=== PATIENT | male | born 1985 | race Hispanic/Latino ===

== ENCOUNTER 2021-11-17 18:11 | Emergency (ER) | payer OTHER, SELFPAY ==
[2021-11-17 18:20] VITALS: BP 122/72; PULSE 91; RESP 16; TEMP 36.1; O2SAT 98
--- NOTE | 2021-11-17 18:21 | ED.SKABFB ---
HPI - Skin/Abscess/Foreign Bdy General Chief complaint: Skin/Abscess/Foreign Body Stated complaint: poison christ Time Seen by Provider: 11/17/21 18:21 Source: patient Mode of arrival: ambulatory Limitations: no limitations History of Present Illness HPI narrative: 36-year-old male presented for complaint of rash and itching bilateral wrists, ears, left lower leg and back, onset 3 days. She states he cleansed with an [id number] wash, at the onset of symptoms, has not taken anything or applied anything else to the sites. Denies any other locations of sites. Denies lip, tongue, or throat swelling or difficulty breathing. Pt is [place]-speaking and his is translating per his request. MD complaint: rash Related Data Allergies Allergy/AdvReac Type Severity Reaction Status Date / Time No Known Allergies Allergy Verified 11/17/21 18:21 Review of Systems Review of Systems: CONSTITUTIONAL: Denies body aches, fever, chills, or sweats. EYES: Denies visual changes, redness, or discharge. ENT: Denies rhinorrhea, congestion, sore throat, or otalgia. CARDIOVASCULAR: Denies chest pain, palpitations, or edema. RESPIRATORY: Denies cough or dyspnea. SKIN: Reports rash, itching MUSCULOSKELETAL: Denies back pain, joint pain, or myalgia. NEUROLOGIC: Denies headache, numbness, tingling, or weakness. PSYCH: Denies depression or anxiety. PMFSH Comments At time of signature, I have reviewed and agree with nursing past medical, surgical, social and family history unless otherwise noted. Please see nursing chart for further information. There is no relevant family history pertinent to the presenting complaint Exam Narrative: GENERAL: Well-appearing HEAD: Normocephalic, atraumatic. EYES: conjunctivae clear, and EOMI. ENT: Mucous membranes moist. Oropharynx without edema, erythema or lesions. NECK: Supple. No lymphadenopathy CHEST: Clear to auscultation. No respiratory distress. HEART: Regular rate and rhythm. SKIN: Warm, dry. Small patches of erythematous papules to bilateral wrists, left lower leg, and left lower back, nontender, no apparent drainage; c/w contact dermatitis NEURO: Alert and oriented x3. PSYCH: Normal mood and affect Course Course Emergency Course: Patient is aware of diagnosis, understands and agrees to treatment plan. Anticipatory guidance given. Patient agrees to follow-up as directed and is aware of reasons to seek care at the emergency department. Portions of this record may have been created with voice recognition software Level of Care: Express Care Visit Vital Signs Vital signs: Vital Signs Temperature 97.0 F L 11/17/21 18:20 Pulse Rate 91 11/17/21 18:20 Respiratory Rate 16 11/17/21 18:20 Blood Pressure 122/72 11/17/21 18:20 Pulse Oximetry 98 11/17/21 18:20 Oxygen Delivery Room Air 11/17/21 18:20 Temperature 97.0 F L 11/17/21 18:20 Pulse Rate 91 11/17/21 18:20 Respiratory Rate 16 11/17/21 18:20 Blood Pressure 122/72 11/17/21 18:20 Pulse Oximetry 98 11/17/21 18:20 Oxygen Delivery Room Air 11/17/21 18:20 Reviewed MDM - Skin/Abscess/Foreign Bdy MDM Narrative Medical decision making narrative: Patient looks well, nontoxic, afebrile; appropriate for initial outpatient treatment; discussed the importance of follow-up, patient agrees Instructed patient to go to nearest ER immediately for any worsening symptoms including but not limited to: fever, spreading rash, pain, sore throat, headache, dizziness, chest pain, trouble breathing, or any symptoms concerning to the patient. Differential Diagnosis Differential diagnosis: Likely abscess of skin or subcutaneous tissue, urticaria, herpes zoster, cellulitis and contact dermatitis Discharge Plan Discharge Clinical Impression: Contact dermatitis Patient Disposition: Home, Self-Care Condition: Stable Instructions: Antibiotic Form, Contact Dermatitis (ED) Additional Instructions: Wash the areas w
== END 2021-11-17 18:41 | disposition home or self-care (01) ==
PROVIDERS: Emergency Provider Nurse Practitioner Family
DX: L25.9 Unspecified contact dermatitis, unspecified cause (principal)
CPT/HCPCS: 99213; G0463

== ENCOUNTER 2023-08-22 03:19 | Emergency (ER) | payer OTHER, SELFPAY ==
--- NOTE | ~2023-08-22 | CT_ITS ---
EXAMINATION: CT abdomen pelvis wo con DATE: 08/22/2023 04:13 INDICATION: Flank pain. Urinary urgency. TECHNIQUE: Computed tomography (CT) of the abdomen and pelvis was performed without intravenous contr ast. Automated exposure control and iterative reconstruction technique were employed. The dose-length product was 456.07 mGy-cm. COMPARISON: None. FINDINGS: The visualized portions of the lung bases demonstrate mild atelectasis. No pleural effusion . The heart size is normal. No pericardial effusion. There is diffuse hepatic steatosis. The gallblad eda, spleen, pancreas, and adrenal glands are normal. There is a 4 mm stone in right kidney. There is mild right hydronephrosis and hydroureter. There is a 3 mm stone at right ureterovesicular junction. There is a 3 mm stone in left kidney. There is a right inguinal hernia containing fat. The prostate is mildly enlarged. There are no dilated loops of bowel. The appendix is normal. There are no patholo gically enlarged lymph nodes. There is no free intraperitoneal fluid. There is mild thoracic and lumb ar spondylosis. There is mild chronic anterior wedging of T12 and L1 vertebral bodies. IMPRESSION: 1. 3 mm stone at right ureterovesicular junction with mild right hydronephrosis and hydroureter. 2. Bilateral nonobstructing kidney stones. Reviewed, dictated and finalized at location E. [employer]
[2023-08-22 03:21] VITALS: BP 141/97; PULSE 89; RESP 20; TEMP 36.4; O2SAT 100
--- NOTE | 2023-08-22 03:25 | ED.GENADULT ---
HPI - General Adult General Chief complaint: Urogenital-Male Stated complaint: Right flank pain Time Seen by Provider: 08/22/23 03:23 History of Present Illness HPI narrative: patient 38-year-old gentleman who presents emergency department with chief complaint of right-sided flank pain. The patient reports this started suddenly this evening about 1 hour prior to arrival the patient report is unable to get comfortable reports this feels similar to whenever he has had kidney stones before in the past but states he is also having some difficulty starting to urinate. Related Data Allergies Allergy/AdvReac Type Severity Reaction Status Date / Time No Known Allergies Allergy Verified 11/17/21 18:21 Review of Systems Review of Systems: A 10 system review of systems was completed on the patient and is negative except for what is stated in the HPI. Nursing and ancillary documentation was reviewed. Exam Narrative: GENERAL: Well-appearing, well-nourished, and in Moderate acute pain distress. HEAD: Normocephalic, atraumatic. EYES: PERRLA and EOMI. ENT: Nares clear, no rhinorrhea or epistaxis. Mucous membranes moist. NECK: Supple. CHEST: Clear to auscultation. No respiratory distress. HEART: Regular rate and rhythm. No murmur heard. Normal peripheral pulses. ABDOMEN: Soft, nontender, nondistended, normal active bowel sounds. EXTREMITIES: Normal range of motion. No edema. SKIN: Warm, dry, no rash. NEURO: No focal deficits. Alert and oriented x3. PSYCH: Normal mood and affect. Course Vital Signs Vital signs: Vital Signs Temperature 36.4 C L 08/22/23 03:21 Pulse Rate 89 08/22/23 03:21 Respiratory Rate 20 08/22/23 03:21 Blood Pressure 141/97 H 08/22/23 03:21 Pulse Oximetry 100 08/22/23 03:21 Oxygen Delivery Room Air 08/22/23 03:21 Temperature 36.4 C L 08/22/23 03:21 Pulse Rate 89 08/22/23 03:21 Respiratory Rate 20 08/22/23 03:21 Blood Pressure 141/97 H 08/22/23 03:21 Pulse Oximetry 100 08/22/23 03:21 Oxygen Delivery Room Air 08/22/23 03:21 Medical Decision Making MDM Narrative Medical decision making narrative: Differential diagnosis includes UTI, pyelonephritis, ureterolithiasis, Patient underwent laboratory testing showed a white count of 10.8 electrolytes are within normal limits CT scan of the abdomen pelvis showed a 4 mm stone at the UVJ The patient's pain is under control now the patient will be discharged home on Flomax [place] and Zofran the patient will be given a urine strainer Ob referred to Urology. The urinalysis will be evaluated prior to the patient's discharge. Vital Signs Vital Signs: Vital Signs Temperature 36.4 C L 08/22/23 03:21 Pulse Rate 89 08/22/23 03:21 Respiratory Rate 20 08/22/23 03:21 Blood Pressure 141/97 H 08/22/23 03:21 Pulse Oximetry 100 08/22/23 03:21 Oxygen Delivery Room Air 08/22/23 03:21 Temperature 36.4 C L 08/22/23 03:21 Pulse Rate 89 08/22/23 03:21 Respiratory Rate 20 08/22/23 03:21 Blood Pressure 141/97 H 08/22/23 03:21 Pulse Oximetry 100 08/22/23 03:21 Oxygen Delivery Room Air 08/22/23 03:21 Lab Data 08/22/23 03:31 08/22/23 03:31 Labs: Lab Results 08/22/23 08/22/23 Range/Units 03:31 04:51 WBC 10.8 H (4.5-10.0) K/mm3 RBC 5.45 (4.6-6.20) M/mm3 Hgb 16.1 (14.0-18.0) g/dL Hct 48.1 (42.0-52.0) % MCV 88.3 (80-100) fl MCH 29.5 (26-34) pg MCHC 33.5 (32-36) g/dl RDW 12.7 (11.5-14.5) % Plt Count 206 (150-375) k/mm3 MPV 10.9 H (7.4-10.4) fl Immature Gran % (Auto) 0.4 (0-0.5) % Neut % (Auto) 34.9 L (45.5-73.1) % Lymph % (Auto) 54.5 H (18.3-44.2) % [place] % (Auto) 8.3 (2.6-8.5) % Eos % (Auto) 1.3 (0-4.4) % Baso % (Auto) 0.6 (0.2-1.2) % Lymph # (Auto) 5.89 H (0.9-3.2) K/mm3 [place] # (Auto) 0.9 H (0.1-0.6) K/mm3 Eos # (Auto) 0.1 (0-0.3) K/mm3 Baso # (Auto) 0.1 (0.0-0.1)
[2023-08-22] MEDS: SODIUM CHLORIDE 0.9% IV 1,000 ML 999 ML IV CONT (03:31)
[2023-08-22] MEDS: ONDANSETRON INJ 4 MG/2 ML VIAL IV PUSH (03:32)
[2023-08-22] MEDS: MORPHINE SULFATE (*CRX) 4 MG/ML INJ IV PUSH (03:32)
[2023-08-22] MEDS: HYDROmorphone HCL INJ (*CRX) 1 MG/ML SYR IV PUSH ×2 (03:50→04:58)
[2023-08-22 03:52] LABS: Alanine Aminotransferase 52 U/L (6-50); Albumin Level 4.8 g/dL (3.5-5.1); Alkaline Phosphatase 114 U/L (38-126); Anion Gap 13 mmol/L (8-16); Aspartate Amino Transferase 34 U/L (17-59); Bilirubin,Total 0.8 mg/dL (0.2-1.3); Blood Urea Nitrogen 14 mg/dL (9-20); Calcium 9.5 mg/dL (8.4-10.2); Carbon Dioxide 20 mmol/L (22-30); Chloride 104 mmol/L (98-107); Estimated CRCL calculation 98 ml/min; Estimated Glomerular Filt Rate > 60; Glucose 137 mg/dL (65-110); Lipase 119 U/L (23-300); Potassium 3.6 mmol/L (3.4-5.0); Sodium 137 mmol/L (137-145)
[2023-08-22 03:54] LABS: Basophils Absolute Auto 0.1 K/mm3 (0.0-0.1); Basophils Percent Auto 0.6 % (0.2-1.2); Eosinophils Absolute Auto 0.1 K/mm3 (0-0.3); Eosinophils Percent Auto 1.3 % (0-4.4); Hematocrit 48.1 % (42.0-52.0); Hemoglobin 16.1 g/dL (14.0-18.0); Immature Granulocyte Absolute 0.04 K/mm3 (0.00-0.031); Immature Granulocyte Percent A 0.4 % (0-0.5); Lymphocytes Absolute Auto 5.89 K/mm3 (0.9-3.2); Lymphocytes Percent Auto 54.5 % (18.3-44.2); Mean Corpuscular HGB Conc 33.5 g/dl (32-36); Mean Corpuscular Hemoglobin 29.5 pg (26-34); Mean Corpuscular Volume 88.3 fl (80-100); Mean Platelet Volume 10.9 fl (7.4-10.4); Monocytes Absolute Auto 0.9 K/mm3 (0.1-0.6); Monocytes Percent Auto 8.3 % (2.6-8.5); Neutrophils Absolute Auto 3.8 K/mm3 (1.3-6.7); Neutrophils Percent Auto 34.9 % (45.5-73.1); Platelet Count Result 206 k/mm3 (150-375); Red Blood Count 5.45 M/mm3 (4.6-6.20); Red Cell Distribution Width 12.7 % (11.5-14.5); White Blood Count 10.8 K/mm3 (4.5-10.0)
[2023-08-22] MEDS: TAMSULOSIN HCL 0.4 MG CAPSULE PO (04:54)
[2023-08-22 05:23] LABS: Appearance Urine Clear (Clear); Bacteria Urine None Seen /hpf; Bilirubin Urine Negative (Negative); Blood Urine 3+ (Negative); Color Urine Yellow (Yellow); Glucose Urine UA Negative (Negative); Ketones Urine Negative (Negative); Leukocyte Esterase Ur Negative LEU/UL (Negative); Nitrate Urine Negative (Negative); Non Pathogenic Casts 0-2; Protein Urine Negative (Negative); RBC Urine >100 /hpf (0-2); Specific Grav Ur 1.013 (1.001-1.035); Squamous Epithelial Cell Urine None seen /hpf (Few); Urobilinogen Urine 0.2 mg/dL (<2.0); WBC Urine 0-5 /hpf; pH Urine 5.5 (5.0-9.0)
[2023-08-22 05:26] LABS: Add Urine Microscopic? YES
[2023-08-22 05:40] VITALS: BP 113/79; PULSE 83; RESP 18; O2SAT 97
== END 2023-08-22 05:44 | disposition home or self-care (01) ==
PROVIDERS: Emergency Provider Emergency Medicine
DX: N13.2 Hydronephrosis with renal and ureteral calculous obstruction (principal)
CPT/HCPCS: 36415; 74176; 80053; 81001; 83690; 85025; 96361; 96374; 96375; 96376; 99284; A9270; J1170; J2270; J2405; J7030